=== PATIENT | female | born 1995 | race African-American/Black ===

== ENCOUNTER 2017-05-14 19:17 | Emergency (ER) | payer SELFPAY ==
[~2017-05-14] VITALS: Ht 154.9 cm; Wt 120.4 kg
[2017-05-14 19:23] VITALS: BP 144/85; TEMP 100.3; O2SAT 99
[2017-05-14] MEDS ORDERED: AMOX875T PO (20:40)
--- NOTE | 2017-05-14 20:40 | PD ---
HPI Chief Complaint: ENT Complaint Time Seen by Provider: 20:28 Travel History International Travel<30 days: No Contact w/Intl Traveler<30days: No Traveled to known affect area: No History of Present Illness HPI Patient comes to the emergency department complaining of possible tonsillitis. Patient reports symptoms began 2 days ago. Reports of scratching burning sensation in her throat that is worse with swallowing. Denies any radiation of pain. Denies doing anything for this prior to coming to the emergency department. Denies anything making symptoms better, difficulty swallowing, ear pain, chest pain, shortness of breath, abdominal pain, nausea, vomiting, or . Patient reports feels similar to the last time she had tonsillitis early last year. [facility] Past Medical History Medical other: Yes (tonsilitis ) Tetanus Vaccination: Unknown Influenza Vaccination: No ?: Not LMP: 05/14/17 Past Surgical History Surgical History: No Previous Surgery Social History Alcohol Use: Yes (occassionally ) Tobacco Use: No Substance Use: No Allergies-Medications (Allergen,Severity, Reaction): Coded Allergies: No Known Allergies (Unverified , 05/14/17) Reported Meds & Prescriptions Reported Meds & Active Scripts Active Amoxicillin 875 Mg Tab 875 Mg PO BID 10 Days Review of Systems Except as stated in HPI: all other systems reviewed are Neg Physical Exam Narrative GENERAL: Well-developed, overly nourished, in no acute distress, and non-ill appearing. SKIN: Focused skin assessment warm and dry. HEAD: Atraumatic. Normocephalic. EYES: Pupils equal and round. EOMI. No scleral icterus. No injection or drainage. ENT: No nasal bleeding or discharge. Mucous membranes pink and moist. Tympanic membranes pearly bhatt bilaterally. Posterior pharynx mild erythematous and mild edematous tonsils. No exudate. Uvula is midline. Patient is swallowing own saliva and speaking in full sentences without difficulty. No tenderness to facial sinuses to palpation. NECK: Trachea midline. No cervical lymphadenopathy. Supple. No nuclear rigidity. CARDIOVASCULAR: Regular rate and rhythm. No murmur appreciated. RESPIRATORY: No accessory muscle use. No respiratory distress. Clear to auscultation. Breath sounds equal bilaterally. MUSCULOSKELETAL: No obvious deformities. No clubbing. No cyanosis. No edema. Full range of motion. NEUROLOGICAL: Awake and alert. No obvious cranial nerve deficits. Motor grossly within normal limits. Normal speech. PSYCHIATRIC: Appropriate mood and affect; insight and judgment normal. Data Data Last Documented VS Vital Signs Date Time Temp Pulse Resp B/P (MAP) Pulse Ox O2 Delivery O2 Flow Rate FiO2 05/14/17 19:23 100.3 102 18 144/85 (104) 99 Orders Orders Ed Discharge Order (05/14/17 20:40) MDM Medical Decision Making Medical Screen Exam Complete: Yes Emergency Medical Condition: Yes Differential Diagnosis Viral pharyngitis, strep pharyngitis, tonsillitis, peritonsillar abscess, pharyngeal abscess Narrative Course Patient looks great, non-ill appearing. The patient is tolerating fluids and is well hydrated. Appears tonsillitis possibly Strep. No clinical evidence by history or evaluation to suspect meningitis and/or sepsis. There was no evidence to suggest peritonsillar abscess or retropharyngeal abscess. I discussed with the patient, diagnosis, plan of care and to follow up with the patients primary physician. The patient was given antibiotics. The patient was instructed to return if the worsens in anyway, especially if not tolerating fluids, increased pain or swelling, difficulty swallowing or breathing, or as needed. The patient agreed with plan. Patient in no obvious distress upon re-evaluation. Patient was asked if they wanted to speak to my attending, which the patient did not wish to do at this time. Any questions/concerns in reference to patient diagnosis/condition discussed and clarified prior to patient's discharge. Reinforced sheer importance of close follow up with patient's primary physician or primary care clinic. Instructed patient to return to ED immediately, if symptoms return/ worsen. Patient showed understanding of above instructions. Further instructions and recommendations were detailed in discharge paperwork. Patient ambulated without difficulty out of ED at discharge. Diagnosis Primary Impression: Tonsillitis Referrals: Timmy Merritt MD [facility] Patient Instructions: General Instructions, Tonsillitis (ED) Additional Instructions: Follow-up with your primary care physician and/or ENT in 3-5 days for reevaluation. Take all medication as prescribed. Use [id number] Tylenol and/or ibuprofen as needed for pain and/or fever control. Follow instructions on the packaging. Gargle with warm salt water gargle. Return to the emergency department if symptoms get worse. Med/Other Pt SpecificInfo: Prescription(s) given Scripts Amoxicillin (Amoxicillin) 875 Mg Tab 875 MG PO BID for Infection for 10 Days, #20 TAB 0 Refills Prov: Panfilo Patel MD 05/14/17 Disposition: 01 DISCHARGE HOME Condition: Stable Dash Mobley May 14, 2017 20:40
== END 2017-05-14 21:07 | disposition home or self-care (01) ==
LOC: PHEFT 19:17
DX: J03.90 Acute tonsillitis, unspecified (principal)
CPT/HCPCS: 99283